=== PATIENT | male | born 1960 | race Caucasian/White ===

== ENCOUNTER → 2019-04-18 | Outpatient (CLI) | payer BC | END | disposition home or self-care (01) | LOC: RAH 11:08 | PROVIDERS: ATTEND Internal Medicine Cardiovascular Disease | DX: I87.2 Venous insufficiency (chronic) (peripheral) (principal) | CPT/HCPCS: 93970 ==

== ENCOUNTER → 2020-02-13 | Outpatient (CLI) | payer BC | END | disposition home or self-care (01) | LOC: SHCH 09:22 | PROVIDERS: ATTEND Internal Medicine Cardiovascular Disease | DX: I87.2 Venous insufficiency (chronic) (peripheral) (principal) | CPT/HCPCS: 93970 ==

== ENCOUNTER 2020-04-20 11:31 | Emergency (ER) | payer BC ==
[2020-04-20] MEDS ORDERED: ONDANSETRON HCL 4 MG/2 ML VIAL ONE (11:57)
[2020-04-20] MEDS ORDERED: KETOROLAC TROMETHAMINE 30MG/ML ONE (11:57)
[2020-04-20] MEDS ORDERED: SODIUM CHLORIDE 0.9% 1000ML 1,000 ML IV ONE (11:57)
[2020-04-20 12:02] LABS: BASOPHILS % (AUTO) 0.5 % (0.0-5.0); EOSINOPHILS % (AUTO) 1.5 % (0.0-8.0); HEMATOCRIT 47.2 % (42-54); LYMPHOCYTES % (AUTO) 37.8 % (21.0-51.0); MEAN CORPUSCULAR HEMOGLOBIN 31.6 pg (27.0-33.0); MEAN CORPUSCULAR HGB CONC 33.7 g/dL (32.0-36.0); MEAN CORPUSCULAR VOLUME 93.8 fL (79-99); MONOCYTES % (AUTO) 9.4 % (3.0-13.0); NEUTROPHILS % (AUTO) 50.5 % (40.0-77.0); PLATELET COUNT (AUTO) 185 K/uL (130-400); RED BLOOD CELL COUNT(AUTO) 5.03 MIL/uL (4.50-6.20); RED CELL DISTRIBUTION WIDTH 13.2 % (11.0-15.5); WHITE BLOOD COUNT (AUTO) 3.9 K/uL (4.8-10.8)
[2020-04-20 12:07] LABS: APPEARANCE,URINE Clear (CLEAR); BILIRUBIN,URINE Negative (NEGATIVE); COLOR,URINE Yellow (YELLOW); GLUCOSE, URINE (UA) Negative (NEGATIVE); KETONES,URINE Negative (NEGATIVE); LEUKOCYTE ESTERASE ,URINE Negative (NEGATIVE); NITRATE,URINE Negative (NEGATIVE); OCCULT BLOOD,URINE Moderate (NEGATIVE); PH,URINE 7.5 (5.0-8.0); PROTEIN,URINE Negative (NEGATIVE); UROBILINOGEN,URINE 0.2 mg/dL (0.2-1.0)
[2020-04-20 12:13] LABS: CREATININE 0.8 mg/dL (0.5-1.5); POTASSIUM 4.3 mmol/L (3.5-5.1)
[2020-04-20 12:16] LABS: ALBUMIN 3.8 g/dL (3.5-5.0); BILIRUBIN,TOTAL 0.4 mg/dL (0.2-1.0); TOTAL PROTEIN, SERUM 7.2 g/dL (6.0-8.3)
[2020-04-20 12:17] LABS: INR 1.12 (0.85-1.15); PROTHROMBIN TIME 12.1 SEC (9.6-11.6)
[2020-04-20 12:18] LABS: PARTIAL THROMBOPLASTIN TIME 26.3 SEC (26.3-35.5)
[2020-04-20 12:37] LABS: RBC,URINE 26-50 /HPF (0-1); WBC,URINE None Seen /HPF (0-1)
[2020-04-20 12:38] LABS: AMORPHOUS SEDIMENT,UR Few /LPF (None Seen); BACTERIA,URINE Rare /HPF (None Seen); MUCUS,URINE Moderate LPF (None Seen); SQUAMOUS EPITHELIAL CELL,UR 0-2 /HPF (0-2)
[2020-04-20] MEDS ORDERED: TAMSULOSIN HCL 0.4 MG CAP.ER.24H ONE (13:00)
== END 2020-04-20 13:57 | disposition home or self-care (01) ==
LOC: EDH 11:31
DX: N20.0 Calculus of kidney (principal); K80.20 Calculus of gallbladder without cholecystitis without obstruction; I10 Essential (primary) hypertension; Z88.0 Allergy status to penicillin; Z90.49 Acquired absence of other specified parts of digestive tract; Z98.890 Other specified postprocedural states
CPT/HCPCS: 36415; 71045; 74176; 80053; 81001; 83690; 84484; 85025; 85610; 85730; 93005; 96361; 96374; 96375; 99285; J1885; J2405; J7030

== ENCOUNTER → 2020-06-10 | Outpatient (CLI) | payer BC | END | disposition home or self-care (01) | LOC: SHCH 13:03 | PROVIDERS: ATTEND Internal Medicine Cardiovascular Disease | DX: I48.0 Paroxysmal atrial fibrillation (principal); R55 Syncope and collapse; E78.5 Hyperlipidemia, unspecified | CPT/HCPCS: 93306; 93356 ==

== ENCOUNTER 2022-04-18 00:59 | Observation (INO) | payer MEDICARE ==
[~2022-04-18] VITALS: Ht 182.9 cm; Wt 111.1 kg
[2022-04-18 01:22] LABS: BASOPHILS % (AUTO) 0.3 % (0.0-5.0); EOSINOPHILS % (AUTO) 1.9 % (0.0-8.0); LYMPHOCYTES % (AUTO) 24.6 % (21.0-51.0); MEAN CORPUSCULAR HEMOGLOBIN 30.5 pg (27.0-33.0); MEAN CORPUSCULAR VOLUME 92.4 fL (79-99); MONOCYTES % (AUTO) 12.5 % (3.0-13.0); NEUTROPHILS % (AUTO) 60.3 % (40.0-77.0); PLATELET COUNT (AUTO) 154 K/uL (130-400); RED BLOOD CELL COUNT(AUTO) 4.76 MIL/uL (4.50-6.20); RED CELL DISTRIBUTION WIDTH 13.3 % (11.0-15.5); WHITE BLOOD COUNT (AUTO) 6.8 K/uL (4.8-10.8)
[2022-04-18] MEDS ORDERED: ASPIRIN 81MG CHEW TAB PO ONE (01:30)
[2022-04-18 01:32] LABS: CREATININE 0.9 mg/dL (0.5-1.5); POTASSIUM 3.5 mmol/L (3.5-5.1)
[2022-04-18 01:35] LABS: PROTHROMBIN TIME 10.9 SEC (9.6-11.6)
[2022-04-18 01:37] LABS: ALBUMIN 3.9 g/dL (3.5-5.0); TOTAL PROTEIN, SERUM 7.5 g/dL (6.0-8.3)
[2022-04-18] MEDS ORDERED: POTASSIUM BICARB/CIT AC 25 MEQ TABLET.EFF PO ONE (02:00)
[2022-04-18] MEDS ORDERED: ONDANSETRON 4MG INJ IVP PRN (04:30)
[2022-04-18] MEDS ORDERED: MORPHINE 4 MG SYG IVP PRN (04:30)
[2022-04-18 05:10] VITALS: BP 165/91
[2022-04-18] MEDS ORDERED: RIVA20TA PO (06:09)
[2022-04-18] MEDS ORDERED: ESCI-8 PO (06:09)
[2022-04-18] MEDS ORDERED: LEVE750T10 PO (06:09)
[2022-04-18] MEDS ORDERED: ROSU10TA28 PO (06:09)
[2022-04-18] MEDS ORDERED: BRIM5DRO OP (06:09)
[2022-04-18] MEDS ORDERED: BACL10TA PO (06:09)
[2022-04-18 08:00] VITALS: BP 131/80
[2022-04-18 08:16] LABS: BASOPHILS % (AUTO) 0.2 % (0.0-5.0); EOSINOPHILS % (AUTO) 1.6 % (0.0-8.0); HEMATOCRIT 40.5 % (42-54); LYMPHOCYTES % (AUTO) 25.6 % (21.0-51.0); MEAN CORPUSCULAR HGB CONC 33.3 g/dL (32.0-36.0); MONOCYTES % (AUTO) 11.3 % (3.0-13.0); NEUTROPHILS % (AUTO) 60.9 % (40.0-77.0); PLATELET COUNT (AUTO) 152 K/uL (130-400); RED CELL DISTRIBUTION WIDTH 13.3 % (11.0-15.5); WHITE BLOOD COUNT (AUTO) 5.2 K/uL (4.8-10.8)
[2022-04-18 08:42] LABS: POTASSIUM 3.6 mmol/L (3.5-5.1)
[2022-04-18 08:56] LABS: ALBUMIN 3.5 g/dL (3.5-5.0); CREATININE 0.6 mg/dL (0.5-1.5); TOTAL PROTEIN, SERUM 6.4 g/dL (6.0-8.3)
[2022-04-18] MEDS: TIMOLOL MALEATE 0.5% 5 ML BOTTLE OP SCH ×2 (11:06→21:01)
[2022-04-18] MEDS: ASPIRIN 81 MG EC TAB PO SCH (11:07)
[2022-04-18] MEDS: BACLOFEN 10 MG TABLET PO SCH ×3 (11:07→20:59)
[2022-04-18] MEDS: ATORVASTATIN 20 MG TABLET PO SCH (11:07)
[2022-04-18] MEDS: LEVETIRACETAM 500 MG TABLET PO SCH ×3 (11:07→21:00)
[2022-04-18] MEDS: RIVAROXABAN 20 MG TABLET PO SCH (11:08)
[2022-04-18] MEDS: BRIMONIDINE TARTRATE 0.2% 5 ML BOTTLE OP SCH ×2 (11:09→21:00)
[2022-04-18] MEDS: CITALOPRAM 20 MG TABLET PO SCH (11:17)
[2022-04-18 12:00] VITALS: BP 135/78
[2022-04-18 16:00] VITALS: BP 124/75
[2022-04-18] MEDS ORDERED: POTASSIUM CHLORIDE 10% ELIXIR 20 MEQ/15 ML UDCUP PO PRN (18:00)
[2022-04-18] MEDS ORDERED: POTASSIUM CHLORIDE 20MEQ/100ML 100 ML IV PRN (18:00)
[2022-04-18] MEDS ORDERED: LIDOCAINE HCL-MPF 1% 2ML VIAL IV PRN (18:00)
[2022-04-18] MEDS: KCL 20 MEQ ERTAB PO PRN ×2 (18:38→21:00)
[2022-04-18 19:55] VITALS: BP 127/79
[2022-04-18] MEDS ORDERED: LEVE10006 PO (21:16)
[2022-04-19 04:12] VITALS: BP 125/72
[2022-04-19 08:00] VITALS: BP 130/74
[2022-04-19] MEDS ORDERED: REGADENOSON 0.4 MG/5 ML PF SYG IVP SCH (08:00)
[2022-04-19] MEDS ORDERED: LEVETIRACETAM 500 MG TABLET PO SCH (09:00)
[2022-04-19 11:09] VITALS: BP 128/71
[2022-04-19] MEDS: TIMOLOL MALEATE 0.5% 5 ML BOTTLE OP SCH (11:13)
[2022-04-19] MEDS: BACLOFEN 10 MG TABLET PO SCH ×2 (11:13→16:04)
[2022-04-19] MEDS: BRIMONIDINE TARTRATE 0.2% 5 ML BOTTLE OP SCH (11:13)
[2022-04-19] MEDS: ASPIRIN 81 MG EC TAB PO SCH (11:14)
[2022-04-19] MEDS: CITALOPRAM 20 MG TABLET PO SCH (11:14)
[2022-04-19] MEDS: RIVAROXABAN 20 MG TABLET PO SCH (11:14)
[2022-04-19] MEDS: ATORVASTATIN 20 MG TABLET PO SCH (11:15)
[2022-04-19 16:00] VITALS: BP 135/73
== END 2022-04-19 17:15 | disposition home or self-care (01) ==
LOC: EDH 00:59 → EDHIP 04:12 → INTOOBSV 04:12 → 3DH 04:48
PROVIDERS: ADMIT Internal Medicine; ATTEND Internal Medicine
DX: R07.89 Other chest pain (principal); I87.2 Venous insufficiency (chronic) (peripheral); I82.409 Acute embolism and thrombosis of unspecified deep veins of unspecified lower extremity; G40.909 Epilepsy, unspecified, not intractable, without status epilepticus; E78.5 Hyperlipidemia, unspecified; E78.00 Pure hypercholesterolemia, unspecified; I10 Essential (primary) hypertension; E11.9 Type 2 diabetes mellitus without complications; E66.9 Obesity, unspecified; I48.0 Paroxysmal atrial fibrillation; Z88.0 Allergy status to penicillin; Z79.899 Other long term (current) drug therapy
CPT/HCPCS: 80053 ×2; 96374; 99285; 82550 ×2; 83874 ×2; 84484 ×4; 85025 ×2; 85378; 85610; 85730; 36415 ×2; 71045; 93005; 84132; J2270; G0378 ×2; J2785